=== PATIENT | female | born 1955 | race Caucasian/White ===

== ENCOUNTER 2016-06-12 15:27 | Outpatient (CLI) | payer OTHER | END 2016-06-12 15:28 | disposition home or self-care (01) | DX: M17.12 Unilateral primary osteoarthritis, left knee (principal); M23.92 Unspecified internal derangement of left knee; S83.242A Other tear of medial meniscus, current injury, left knee, initial encounter; M25.462 Effusion, left knee; S83.241A Other tear of medial meniscus, current injury, right knee, initial encounter; M94.261 Chondromalacia, right knee ==

== ENCOUNTER 2016-11-13 09:52 | Outpatient (CLI) | payer OTHER ==
--- NOTE | 2016-11-13 15:12 | DEXA Report ---
DEXA SCAN: 11/13/2016 CLINICAL INDICATION: Osteopenia. TECHNIQUE: Dual energy x-ray absorptiometry (DXA) was performed on a [employer] system. Regions measured are the AP spine, femoral neck, and, if needed, forearm. COMPARISON: None. In accordance with the International Society for Clinical Densitometry (ISCD) guidelines, data from previous exams may be reanalyzed using current recommendations and techniques. This is done to allow a more accurate basis for comparison with the current study. FINDINGS: The data for the lumbar spine is as follows: REGION BMD (g/cm/cm) T-SCORE Z-SCORE L1 0.994 -1.1 -1.0 L2 1.070 -1.1 -1.0 L3 1.050 -1.2 -1.1 L4 1.122 -0.6 -0.5 TOTAL 1.063 -1.0 -0.9 NOTE: All evaluable vertebrae are used for classification. The data for the hip is as follows: REGION BMD (g/cm/cm) T-SCORE Z-SCORE Neck 0.914 -0.9 -0.4 TOTAL 0.961 -0.4 -0.2 NOTE: The femoral neck or total proximal femur, whichever is lowest, is used for classification. IMPRESSION: THE WHO CLASSIFICATION BASED ON THE INTERNATIONAL REFERENCE STANDARD IS NORMAL. THE FRACTURE RISK IS NOT INCREASED. RECOMMENDATION: Patients with diagnosis of osteoporosis or osteopenia should have regular bone mineral density assessment. For those eligible for Medicare, routine testing is allowed once every 2 years. Testing frequency can be increased for patients who have rapidly progressing disease or for those who are receiving medical therapy to restore bone mass. COMMENT: World Health Organization (WHO) definitions for osteoporosis and osteopenia: NORMAL BMD: T-score at -1.0 or higher, fracture risk is low. OSTEOPENIA BMD: T-score between -1.0 and -2.5, fracture risk is increased. OSTEOPOROSIS BMD: T-score at -2.5 or lower, fracture risk high. National Osteoporosis Foundation recommends: 1. Obtain adequate dietary calcium (at least 1200 mg per day) and vitamin D (400 -800 international units per day). 2. Participate, as appropriate, in regular weightbearing and muscle- strengthening exercise. 3. Avoid tobacco use and reduce alcohol and caffeine intake. 4. For more detailed information see the website at www.NOF.org. MTDD
== END 2016-11-13 09:53 | disposition home or self-care (01) ==
LOC: DI 09:52
PROVIDERS: ATTEND Family Medicine
DX: M85.80 Other specified disorders of bone density and structure, unspecified site (principal)
CPT/HCPCS: 77080

== ENCOUNTER 2018-08-11 15:13 | Outpatient (CLI) | payer OTHER | END 2018-08-11 15:14 | disposition home or self-care (01) | LOC: DI 15:13 | PROVIDERS: ATTEND Family Medicine | DX: Z53.9 Procedure and treatment not carried out, unspecified reason (principal) ==

== ENCOUNTER 2019-04-18 06:01 | Day surgery (SDC) | payer OTHER ==
[2019-04-18] MEDS ORDERED: LACTATED RINGERS 1,000 ML IV ONE (06:15)
[2019-04-18] MEDS ORDERED: CEFAZOLIN SODIUM IN 0.9 % NACL 2 GM/100 ML BAG IV ONE (06:22)
[2019-04-18] MEDS ORDERED: BUPIVACAINE 0.25% PF 10 ML VIAL ONE (07:13)
[2019-04-18] MEDS ORDERED: BUPIVACAINE 0.25% PF 30 ML VIAL SUBQ ONE (07:19)
--- NOTE | 2019-04-18 07:25 | ANESTHESIA ---
Pre-Anesthesia VS, & Labs - Diagnosis right index finger cyst - Procedure excision cyst index finger, right Height 5 ft 3 in Weight (kg) 104.33 kg - NPO >8 hours - Is Patient ?: No Home Medications and Allergies Home Medications: Ambulatory Orders Albuterol Sulfate [Proair Hfa Inhaler] 1 - 2 puffs INH Q4H PRN 04/13/19 Cholecalciferol (Vitamin D3) [Vitamin D3] 1,250 mcg PO 04/13/19 Fluticasone [Flonase] 1 sprays EVELIN DAILY 04/13/19 Gabapentin 600 mg PO TID 04/13/19 Loratadine [Claritin] 10 mg PO 04/13/19 Losartan [Cozaar] 50 mg PO DAILY 04/13/19 Montelukast [Singulair] 10 mg PO QPM 04/13/19 Albuterol Sulfate [Proair Hfa Inhaler] 1 - 2 puffs INH Q4H PRN 04/13/19 Cholecalciferol (Vitamin D3) [Vitamin D3] 1,250 mcg PO 04/13/19 Fluticasone [Flonase] 1 sprays EVELIN DAILY 04/13/19 Gabapentin 600 mg PO TID 04/13/19 Loratadine [Claritin] 10 mg PO 04/13/19 Losartan [Cozaar] 50 mg PO DAILY 04/13/19 Montelukast [Singulair] 10 mg PO QPM 04/13/19 Allergies/Adverse Reactions: Allergies Allergy/AdvReac Type Severity Reaction Status Date / Time sulfamethoxazole Allergy Rash Verified 04/13/19 11:54 Anes History & Medical History - Anesthetic History Anesthesia Complications: reports: No previous complications Family history of Anesthesia Complications: Denies Family history of Malignant Hyperthermia: Denies - Medical History Cardiovascular: reports: Hypertension Pulmonary: reports: Asthma Gastrointestinal: reports: Other Urinary: reports: None Musculoskeletal: reports: None, Osteopenia, Other Endocrine/Autoimmune: reports: None Skin: reports: Rosacea Smoking Status: Former smoker - Surgical History General: Colonoscopy Gynecologic: Dilation and currettage Orthopedic: Knee replacement Exam General: Alert Dental: WNL Mouth Opening: Greater than 4 Fingerbreadths Neck Mobility: Normal Mallampati classification: II Thyromental Distance: greater than 6 cm Respiratory: Lungs clear Cardiovascular: Regular rate Plan Anesthesia Type: General, MAC Consent for Procedure(s) Verified and Reviewed: Yes Code Status: Attempt Resuscitation ASA classification: 2-Mild systemic disease Is this case an emergency?: No
[2019-04-18] MEDS ORDERED: fentaNYL 100 MCG/2 ML VIAL IVP ONE (07:34)
[2019-04-18] MEDS ORDERED: PROPOFOL 200 MG/20 ML VIAL IVP ONE (07:34)
[2019-04-18] MEDS ORDERED: LIDOCAINE-MPF 2% 5 ML VIAL IM ONE (07:34)
[2019-04-18] MEDS ORDERED: MIDAZOLAM 2 MG/2 ML VIAL IVP ONE (07:34)
[2019-04-18] MEDS ORDERED: oxyCODONE 5 MG TABLET PO PRN (08:32)
[2019-04-18] MEDS ORDERED: ONDANSETRON 4 MG/2 ML VIAL IVP PRN (08:32)
--- NOTE | 2019-04-18 08:39 | OPERATIVE REPORT ---
Operative Report - Other Other Information/Narrative: Right carpal tunnel date of Surgery: 18 April 2019 Pre-Op Diagnosis: Right index finger cyst Procedure: Right index finger cyst excision Postop Diagnosis: Same Primary Surgeon: Praveen Valle Secondary Surgeon: None Complications: None Tourniquet Time: 18 minutes EBL: 1 cc Postoperative Protocol: Splint on until 2 week. Can start gentle range of motion once the skin is healed. Indication For Surgery: Symptomatic dorsal finger cyst has been present for many months and is significantly bothersome. It is failed to treatment with nonsurgical measures and she desires definitive management. We discussed the risk of recurrence and damage to nearby structures. The risks, benefits, and alternatives were discussed. Risks include pain, bleeding, infection, damage to nearby structures, numbness, lack of symptom relief, need for further surgery, DVT, PE, stroke, and . Written consent was obtained. The patient was met in the preoperative holding on the day of the procedure. Operative extremity was signed. Consent was verified. They desire to proceed. They were brought to the operating room and placed in the supine position. A well-padded forearm tourniquet was applied. They were prepped and draped in the standard fashion. A surgical timeout was held will be confirmed the patient procedure, identity, allergies, antibiotics, image,s laterality, and finger. All were in agreement we proceeded. 10 cc of quarter percent Marcaine without epinephrine were placed in intrathecal, and dorsal ring blocks. Once adequate anesthesia with MAC and local had been obtained a 1 cm incision was made longitudinally over the cyst that was located radially and just distal to the PIP joint. Scissor dissection was used to shell it out from the underlying extensor tendons and the stalk was tracked back to the joint capsule adjacent to the central slip and lateral bands. The a portion of dorsal capsule was excised with the stalk. No significant osteophyte was seen. The wound was irrigated copiously and closed with 4-0 nylon in the skin. A sterile bandage and splint was applied. She was brought to recovery room.
[2019-04-18 08:49] VITALS: BP 141/76
== END 2019-04-18 06:02 | disposition home or self-care (01) ==
LOC: SDS 06:01
PROVIDERS: ATTEND Orthopaedic Surgery
PROC: 0RBW0ZZ Excision of Right Finger Phalangeal Joint, Open Approach (ICD-10-PCS; principal; 2019-04-18 07:30)
DX: M67.441 Ganglion, right hand (principal); Z87.891 Personal history of nicotine dependence